=== PATIENT | male | born 1940 | race Two or more races ===

== ENCOUNTER 2017-09-07 16:56 | Emergency (ER) | payer MEDICAID ==
[~2017-09-07] VITALS: Ht 165.1 cm; Wt 85.7 kg
[2017-09-08 02:19] VITALS: BP 119/62
[2017-09-08] MEDS ORDERED: HYDROcodone-ACET 5/325MG TAB PO ONE (03:15)
[2017-09-08] MEDS ORDERED: KETOROLAC TROMETH 30 MG/ML 1ML VIAL IM ONE (03:15)
== END 2017-09-08 05:00 | disposition home or self-care (01) ==
LOC: ER 17:04 → EDUNIT# 17:04 → ER 09-08 05:00
DX: M19.071 Primary osteoarthritis, right ankle and foot (principal); J45.909 Unspecified asthma, uncomplicated; W18.39XA Other fall on same level, initial encounter; Y93.89 Activity, other specified; Y92.89 Other specified places as the place of occurrence of the external cause; Y99.8 Other external cause status
CPT/HCPCS: 29515; 73590; 73610; 82962; 96372; 99284; J1885